=== PATIENT | female | born 1990 | race Caucasian/White ===

== ENCOUNTER 2017-02-05 19:39 | Emergency (ER) | payer OTHER ==
[~2017-02-05] VITALS: Ht 165.1 cm; Wt 77.3 kg
[2017-02-05] MEDS ORDERED: NEXPLANON68 MG ID (19:59)
[2017-02-05] MEDS ORDERED: NORCO 325 MG-51 TA1 PO (20:20)
[2017-02-05] MEDS ORDERED: AUGMENTIN 875-1 EAC1 PO (20:20)
[2017-02-05 21:07] VITALS: BP 126/75
== END 2017-02-05 21:07 | disposition home or self-care (01) ==
LOC: ED 19:39
DX: S01.21XA Laceration without foreign body of nose, initial encounter (principal); S00.33XA Contusion of nose, initial encounter; V86.69XA Passenger of other special all-terrain or other off-road motor vehicle injured in nontraffic accident, initial encounter; Y92.838 Other recreation area as the place of occurrence of the external cause; S60.512A Abrasion of left hand, initial encounter; S60.511A Abrasion of right hand, initial encounter; S50.812A Abrasion of left forearm, initial encounter; S50.811A Abrasion of right forearm, initial encounter; S60.811A Abrasion of right wrist, initial encounter; M25.532 Pain in left wrist; M25.531 Pain in right wrist; Z72.89 Other problems related to lifestyle
CPT/HCPCS: A4550

== ENCOUNTER 2018-04-28 21:20 | Emergency (ER) | payer BC ==
[~2018-04-28] VITALS: Ht 165.1 cm; Wt 81.8 kg
[~2018-04-28 21:20] MED LIST: AUGMENTIN 875-1 EAC1 PO; NEXPLANON68 MG ID; NORCO 325 MG-51 TA1 PO
[2018-04-28 23:29] VITALS: BP 137/80
== END 2018-04-28 23:29 | disposition home or self-care (01) ==
LOC: ED 21:20
DX: S40.011A Contusion of right shoulder, initial encounter (principal); W22.8XXA Striking against or struck by other objects, initial encounter; Y92.89 Other specified places as the place of occurrence of the external cause
CPT/HCPCS: J1885

== ENCOUNTER → 2019-09-18 | Outpatient (CLI) | payer BC | LOC: LAB 10:21 | DX: M25.532 Pain in left wrist (principal) ==

== ENCOUNTER → 2020-02-11 | Outpatient (CLI) | payer BC | LOC: LAB 16:30 | DX: R50.9 Fever, unspecified (principal); R05 Cough; R52 Pain, unspecified; R53.83 Other fatigue; Z20.828 Contact with and (suspected) exposure to other viral communicable diseases ==